=== PATIENT | female | born 1985 | race Two or more races ===

== ENCOUNTER 2017-09-13 18:22 | Emergency (ER) | payer SELFPAY ==
--- NOTE | 2017-09-13 19:03 | C.PDOC ---
History Of Present Illness 32 year old female is brought to the ED by EMS after [place] sleeping. Patient denies alcohol or drug abuse, states she was very tired and police brought her here. Patient has no visible trauma, injury and denies any other physical complaints at this time. Time Seen by Provider: 09/13/17 19:02 Chief Complaint (Nursing): Substance Abuse History Per: Patient, EMS History/Exam Limitations: no limitations Onset/Duration Of Symptoms: Hrs Current Symptoms Are (Timing): Gone Suicide/Self Injury Attempted (Context): None Modifying Factor(s): None Associated Symptoms: denies: Suicidal Thoughts, Suicidal Plan Involuntary Hold By: None Recent travel outside of the [place]: No Additional History Per: Patient, EMS Past Medical History Reviewed: Historical Data, Nursing Documentation, Vital Signs Vital Signs: Last Vital Signs Temp 98.0 F 09/14/17 04:50 Pulse 95 H 09/14/17 04:50 Resp 18 09/14/17 04:50 BP 117/79 09/14/17 04:50 Pulse Ox 98 09/14/17 04:50 - Medical History PMH: No Chronic Diseases Surgical History: No Surg Hx Family History: States: Unknown Family Hx Review Of Systems Constitutional: Negative for: Fever, Chills Cardiovascular: Negative for: Chest Pain, Palpitations Respiratory: Negative for: Cough, Shortness of Breath Gastrointestinal: Negative for: Nausea, Vomiting, Abdominal Pain Skin: Negative for: Rash Neurological: Negative for: Weakness, Numbness, Headache Psych: Negative for: Depression, Suicidal ideation Physical Exam - Physical Exam Appears: Non-toxic Skin: Warm, Dry Head: Normacephalic Nose: No Discharge Oral Mucosa: Moist Neck: Normal ROM, Supple Chest: Symmetrical Cardiovascular: Rhythm Regular, No Murmur Respiratory: No Rales, No Rhonchi, No Wheezing Gastrointestinal/Abdominal: Soft, No Tenderness, No Guarding, No Rebound Extremity: Normal ROM, No Pedal Edema, No Calf Tenderness, No Deformity, No Swelling Neurological/Psych: Oriented x3, Normal Speech, Normal Cognition ED Course And Treatment O2 Sat by Pulse Oximetry: 100 (On RA) Pulse Ox Interpretation: Normal Disposition Counseled Patient/Family Regarding: Studies Performed, Diagnosis, Need For Followup - Disposition Referrals: [facility] [Outside] Disposition: HOME/ ROUTINE Disposition Time: 19:02 Condition: FAIR Instructions: Alcohol Intoxication (DC) Forms: [facility] (Mongolian) - Clinical Impression Clinical Impression: Alcohol intoxication - Scribe Statement The provider has reviewed the documentation as recorded by the Scribe [place] [place] All medical record entries made by the Scribe were at my direction and personally dictated by me. I have reviewed the chart and agree that the record accurately reflects my personal performance of the history, physical exam, medical decision making, and the department course for this patient. I have also personally directed, reviewed, and agree with the discharge instructions and disposition.
[2017-09-13 19:14] VITALS: BMI 21.6
[2017-09-14 05:15] VITALS: BP 117/79; PULSE 95; RESP 18; TEMP 98
[2017-09-14 05:16] VITALS: O2SAT 100
== END 2017-09-14 05:49 | disposition home or self-care (01) ==
LOC: EDBD 18:22 → C.ER 18:22
DX: F10.129 Alcohol abuse with intoxication, unspecified (principal); Y90.9 Presence of alcohol in blood, level not specified